=== PATIENT | male | born 1995 | race Caucasian/White ===

== ENCOUNTER 2023-09-26 14:09 | Emergency (ER) | payer OTHER ==
[~2023-09-26] VITALS: Ht 170.2 cm; Wt 91.0 kg
[2023-09-26 15:03] LABS: BASOPHILS % 0.5 % (0.0-2.0); EOSINOPHILS % 0.3 % (0.0-5.0); HEMATOCRIT. 42.6 % (42.0-52.0); HEMOGLOBIN. 14.6 g/dL (14.0-18.0); LYMPHOCYTES % 9.4 % (20.0-50.0); MEAN CORPUSCULAR HEMOGLOBIN 30.7 pg (28.0-32.0); MEAN CORPUSCULAR HGB CONC 34.3 g/dL (31.0-37.0); MEAN CORPUSCULAR VOLUME 89.5 fL (80.0-94.0); MEAN PLATELET VOLUME 9.7 fl (7.4-10.4); MONOCYTES % 5.8 % (2.0-8.0); PLATELET 222 x1000/uL (130-400); RED BLOOD CELL COUNT 4.76 mill/uL (4.7-6.1); RED CELL DISTRIBUTION WIDTH 13.2 % (11.6-14.6); WHITE BLOOD COUNT 13.4 x1000/uL (4.5-11.0)
[2023-09-26 15:04] LABS: CHLORIDE 105 mEq/L (98-107); POTASSIUM 5.1 mEq/L (3.5-5.1); SODIUM 136 mEq/L (136-145)
[2023-09-26 15:05] LABS: CARBON DIOXIDE 26 mEq/L (21-32)
[2023-09-26 15:10] LABS: CREATININE 1.1 mg/dL (0.6-1.3); GLUCOSE 138 mg/dL (70-105); UREA NITROGEN BLOOD 12 mg/dL (9-23)
[2023-09-26 15:12] LABS: ALANINE AMINOTRANSFERASE 33 IU/L (10-49); ALBUMIN 5.1 g/dL (3.2-4.8); ASPARTATE AMINOTRANSFERASE 24 IU/L (<34); BILIRUBIN DIRECT 0.1 mg/dL (<=3.0); BILIRUBIN TOTAL 0.4 mg/dL (0.1-1.0); PROTEIN TOTAL 7.7 g/dL (6.0-8.3)
[2023-09-26 15:44] VITALS: TEMP 98.3; O2SAT 100
[2023-09-26 16:18] LABS: CLARITY URINE CLOUDY (CLEAR); COLOR URINE YELLOW (YELLOW); GLUCOSE URINE NEGATIVE (NEGATIVE); KETONES URINE TRACE (NEGATIVE); LEUKOCYTE ESTERASE URINE NEGATIVE (NEGATIVE); NITRITE URINE NEGATIVE (NEGATIVE); OCCULT BLOOD URINE NEGATIVE (NEGATIVE); PH URINE 8.5 (4.5-8.0); PROTEIN URINE NEGATIVE (NEGATIVE); SPECIFIC GRAVITY URINE 1.017 (1.005-1.030); UROBILINOGEN URINE 0.2 E.U./dL (0.2-1.0)
[2023-09-26] MEDS: DICYCLOMINE 10 MG/5 ML ORAL SYR PO STA (16:20)
[2023-09-26] MEDS: ONDANSETRON 4MG ODT PO STA (16:20)
[2023-09-26] MEDS: FAMOTIDINE 20MG TABLET PO ONE (16:20)
[2023-09-26] MEDS: MAGNESIUM/ALUMINUM HYDROXIDE/SIMETHICONE 30ML UDC PO STA (16:21)
[2023-09-26] MEDS: KETOROLAC 30MG/ML VIAL IM ONE (16:22)
[2023-09-26 16:36] LABS: AMORPHOUS SEDIMENT URINE 1+ /lpf; BACTERIA URINE 2+; RBC URINE NONE SEEN /hpf (0-2); SQUAMOUS EPITHELIAL CELL URINE FEW /lpf (RARE/1+); WBC URINE 0-2 /hpf (0-2)
[2023-09-26] MEDS ORDERED: FAMO-135 MT (16:59)
[2023-09-26 17:16] VITALS: BP 136/77; PULSE 72; RESP 16; O2SAT 99
== END 2023-09-26 17:20 | disposition home or self-care (01) ==
LOC: ER 14:09
DX: K29.00 Acute gastritis without bleeding (principal)
CPT/HCPCS: 99284; 80076; 80048; 81003; 83690; 85025; 36415; 96372; Q0162; J1885

== ENCOUNTER 2024-01-12 04:13 | Emergency (ER) | payer MEDICAID, OTHER ==
[~2024-01-12] VITALS: Ht 170.2 cm; Wt 86.8 kg
[~2024-01-12 04:13] MED LIST: FAMO-135 MT
[2024-01-12 04:21] VITALS: O2SAT 100
[2024-01-12] MEDS: FAMOTIDINE 20MG TABLET PO ONE (05:30)
[2024-01-12] MEDS: SUCRALFATE 1G TABLET PO SCH (06:38)
[2024-01-12] MEDS: ACETAMINOPHEN 325MG TABLET PO ONE (08:12)
[2024-01-12] MEDS: MAGNESIUM HYDROXIDE 400MG/5ML 30ML UDC PO ONE (08:34)
[2024-01-12 08:46] VITALS: BP 118/76; PULSE 74; RESP 16; TEMP 37.00296; O2SAT 99
== END 2024-01-12 08:46 | disposition home or self-care (01) ==
LOC: ER 04:13 → EDBEDREQ 07:36 → ER 08:46
DX: R07.89 Other chest pain (principal)
CPT/HCPCS: 71045; 76705; 93005; 99284